=== PATIENT | male | born 1960 | race Caucasian/White ===

== ENCOUNTER 2019-05-01 20:01 | Inpatient (IN) | payer OTHER ==
[~2019-05-01] VITALS: Ht 193 cm; Wt 130.6 kg
--- NOTE | ~2019-05-01 | D ---
[facility] [place] [address] DISCHARGE SUMMARY Name: HAZEL JARRETT Room #: 453-P [facility] IN M.R.#: [id number] Admission: 05/01/19 ������������������ Attend Phys: Hayden Gonzalez Discharge: 05/03/19 ������������������ Date of : 58 Report #: [id number] THIS REPORT FOR: //name// CC: Emile Bliss DATE OF SERVICE: 05/03/2019 FINAL DIAGNOSES: 1. L5 vertebral fracture. 2. Lumbar spinal stenosis. 3. Diabetes type 2. 4. Multiple system atrophy. 5. Intractable back pain. HOSPITAL COURSE: The patient was admitted through the ER with intractable back pain. CT revealed L5 oblique fracture through the vertebral body and previous stabilization surgical hardware from L3 and L4 to S1. I reviewed his case extensively with the patient, his and their two children on the day of admission and then following day. This has been treated and worked up extensively through [facility] and what their description is at this point, there is nothing further that could be done from a surgical standpoint. I reviewed the CT with the radiologist and at this point, there are no overt signs of infection. His said he has already had a postoperative MRI and there was no discussion or reports of infection. At this point, he is adamant to go home. He had previously been on hospice care for his multiple system atrophy that was diagnosed at [facility] in 01/2018. At this point, they are comfortable with continuing hospice care for home treatment, but also following up as an outpatient to consider Neurosurgery third opinion on his back pain. He was comfortable with fentanyl patch 50 mcg, which he had previously used at home. He had also used at home Percocet, oxycodone and a brief treatment with oral Dilaudid here at 2 mg seemed to give better pain relief than the oxycodone. At this point, since he has tried several narcotics in the past, we will continue with the fentanyl patch 50 mcg and Dilaudid 2 mg q. 4 hours p.r.n. breakthrough pain. On the day of discharge, he was awake and alert, sitting up in the bedside chair. His mental status was clear. He was able to give me full history as he had previous day. I had received no phone calls on him overnight regarding uncontrolled pain. PHYSICAL EXAMINATION: VITAL SIGNS: Stable. LUNGS: Clear. HEART: Regular. ABDOMEN: Soft. EXTREMITIES: Showed no edema. [facility] [address] [place] [address] DISCHARGE SUMMARY Name: HAZEL JARRETT Room #: 453-P [facility] IN M.R.#: [id number] Admission: 05/01/19 ������������������ Attend Phys: Hayden Gonzalez Discharge: 05/03/19 ������������������ Date of : 58 Report #: [id number] DISPOSITION: To be discharged to home with diabetic diet, activity as tolerated. Follow up with Dr. Bliss in 10 days. We will have to send to hospice for multiple system atrophy. We will continue Wellbutrin, Tambocor, metformin, NovoLog and Levemir at home. He is to discontinue the clonazepam, carbamazepine, Zanaflex and oxycodone. He will take Dilaudid 2 mg q. 4 hours for severe pain, 7-10 and fentanyl patch 50 mcg every 3 days. ��������������������������������������������� ���������������������������������������� By: ��������������������������������������������� 1159 20 Nestor Cramer MD /nt
[2019-05-01 20:13] VITALS: BP 161/92
[2019-05-01 21:12] LABS: ABSOLUTE NEUTROPHILS 4.3 thou/uL (1.4-8.2); BASOPHILS 1.5 % (0.0-2.0); EOSINOPHILS 7.6 % (0.0-3.0); HEMATOCRIT 32.6 % (42.0-52.0); HEMOGLOBIN 10.8 gm/dL (14.0-18.0); LYMPHOCYTES 13.5 % (24.0-44.0); MCH 29.3 pg (26.0-34.0); MCV 88.9 fL (80.0-100.0); MONOCYTES 8.6 % (1.0-8.0); PLATELET COUNT 244 thou/uL (150-400); POLYS 68.8 % (36.0-66.0); RBC 3.66 mil/uL (4.50-6.00); RDW 16.2 % (10.5-14.5); WBC 6.2 thou/uL (4.0-11.0)
[2019-05-01 21:20] LABS: CALCIUM 8.8 mg/dL (8.5-10.1); CREATININE 0.9 mg/dL (0.7-1.3); POTASSIUM 4.5 mmol/L (3.5-5.1)
[2019-05-01 21:49] LABS: DIRECT BILIRUBIN < 0.1 mg/dL (<0.1-0.3); SGOT 13 U/L (15-37); SGPT 24 U/L (30-65); TOTAL BILIRUBIN 0.2 mg/dL (<0.1-1.0); TOTAL PROTEIN 6.2 g/dL (6.4-8.2)
[2019-05-01] MEDS ORDERED: LEVEMIR FL100 UNIT/2 SUBQ (22:33)
[2019-05-01] MEDS ORDERED: TAMBOCOR 100 M100 M1 PO (22:34)
[2019-05-01] MEDS ORDERED: GLUCOPHAGE XR750 MG PO (22:34)
[2019-05-01] MEDS ORDERED: NOVOLOG100 UNIT/1 SUBQ (22:34)
[2019-05-01] MEDS ORDERED: CLONAZEPAM 1 MG1 M1 PO (22:35)
[2019-05-01] MEDS ORDERED: CARBAMAZEPINE400 MG PO (22:35)
[2019-05-01] MEDS ORDERED: EFFEXOR 5050 MG/1 T1 PO (22:36)
[2019-05-01] MEDS ORDERED: ZANAFLEX4 MG PO (22:36)
[2019-05-01] MEDS ORDERED: ZYRTEC10 M5 PO (22:37)
[2019-05-01] MEDS ORDERED: TUMS PO (22:37)
[2019-05-01] MEDS ORDERED: CENTRUM SILVER1 EAC2 PO (22:37)
[2019-05-01 23:23] VITALS: BP 125/85
[2019-05-02 00:18] VITALS: BP 123/67
[2019-05-02 00:55] VITALS: BP 146/84
[2019-05-02 04:20] VITALS: BP 153/87
[2019-05-02 07:15] VITALS: BP 111/55
[2019-05-02 14:43] VITALS: BP 128/73
[2019-05-02 19:34] VITALS: BP 152/73
[2019-05-03 04:28] VITALS: BP 165/89
[2019-05-03 07:10] VITALS: BP 152/94
--- NOTE | 2019-05-03 10:58 | H ---
[facility] [place] [address] HISTORY AND PHYSICAL Name: HAZEL JARRETT Room #: 453-P ADM IN M.R.#: [id number] Admission: 05/01/19 ������������������ Attend Phys: Hayden Gonzalez Discharge: ������������������ Date of : 58 Report #: [id number] THIS REPORT FOR: //name// CC: Emile Bliss DATE OF SERVICE: 05/02/2019 ATTENDING PHYSICIAN: Dr. Bliss. CHIEF COMPLAINT: Back pain. HISTORY OF PRESENT ILLNESS: The patient is a 58-year-old gentleman who was admitted to the Emergency Room with intractable back pain. His history began in February of this year when he had a fall at home and complained of back pain. [facility] with degenerative changes in the lumbar spine and an L5 vertebral fracture. He was tried with a brace and supportive measures at home. However, his pain persisted and he had several ER evaluations at [facility]. Finally, he was evaluated and admitted at [facility] in March. He underwent a lumbar surgery, I believe, with a stabilization procedure at L3 and L4. He has since been discharged home after a rehab stay. However, his pain has persisted and recently intensified. He was just admitted to hospice care related to a diagnosis of multiple system atrophy from the [facility] in 01/2018. However, they have been unable to manage his pain and have sent him to the Emergency Room. In speaking with the patient and his , it appears he has had several MRIs following surgery. They report at this time, the surgeon at says nothing more could be done for the fracture and it is just a pain management situation at this point, I explained to them that the [facility] currently does not have a neurosurgeon on staff, but I would place a call to his surgeon at . PAST MEDICAL HISTORY: Multiple system atrophy, as mentioned, diagnosed by [facility] in 01/2018. Prior to this, he had some Parkinson symptoms, hypertension, chronic congestive heart failure, chronic kidney disease, AFib and Meniere's disease. PAST SURGICAL HISTORY: As above. FAMILY HISTORY: Noncontributory. SOCIAL HISTORY: He is and lives with his at home. ALLERGIES: PREDNISONE. MEDICATIONS: Lantus, NovoLog, metformin and flecainide. He is also using [facility] [address] [place] [address] HISTORY AND PHYSICAL Name: HAZEL JARRETT Room #: 453-P ADM IN M.R.#: [id number] Admission: 05/01/19 ������������������ Attend Phys: Hayden Gonzalez Discharge: ������������������ Date of : 58 Report #: [id number] oxycodone and fentanyl patch at home. REVIEW OF SYSTEMS: He denies headache, chest pain, shortness of breath, abdominal pain, nausea, vomiting, diarrhea, constipation or dysuria. PHYSICAL EXAMINATION: VITAL SIGNS: Temperature 36.7, pulse 56, respirations 20, blood pressure 111/55 and O2 sat 99% on room air. GENERAL: He is awake and alert, lying in bed. HEAD AND NECK: Unremarkable. LUNGS: Clear. HEART: Irregular. ABDOMEN: Soft. Normoactive bowel sounds. EXTREMITIES: Venous stasis dermatitis changes, but no edema. NEUROLOGIC: Cranial nerves intact. Speech is fluent. Global strength is about 4/5 throughout. LABORATORY DATA: Unremarkable. Albumin at 3. IMAGING: CT of the lumbar spine reveals oblique fracture through L5 vertebral body with anterior fragment displacement, post-surgical changes with fusion rods at L3 and L4 and S1 and osteophyte formation, L4-L5 with [id number] right foraminal stenosis adjacent to the right L4 nerve root. ASSESSMENT: 1. Closed L5 vertebral fracture. 2. Lumbar spinal stenosis at L4 and L5. 3. Recent spinal fusion, L3 and L4 and S1. 4. Intractable back pain due to closed L5 vertebral fracture. 5. Diabetes type 2. 6. Atrial fibrillation, not on anticoagulation. 7. Chronic congestive heart failure. 8. Multiple system atrophy. PLAN: I explained to the patient and his family at this time our focus will be pain control. He has had evaluation for this fracture and what his describes that there were no other surgical interventions or procedures indicated. He has DNR status, which he has requested to continue here due to his underlying neurologic condition. I have placed a call to Dr. Park in the Neurosurgery Department at [facility]. ��������������������������������������������� <ELECTRONICALLY SIGNED> ���������������������������������������� By: Nestor Cramer MD ��������������������������������������������� 05/03/19 1058 1046 1209 Nestor Cramer MD /nt
[2019-05-03] MEDS ORDERED: FENTANYL1 EAC1 TRANSDERM (11:34)
[2019-05-03] MEDS ORDERED: DILAUDID 2 MG TA2 MG PO (11:35)
[2019-05-03 11:58] VITALS: BP 152/94
[2019-05-03 12:02] VITALS: BP 152/94
== END 2019-05-03 13:35 | disposition hospice, home (50) | DRG 560 ==
LOC: ER 20:01 → 4W 23:01 → EROBS 23:01 → 4W 05-02 00:40 → ENTRNSPT 05-03 13:14 → EDTRNSPT 05-03 13:25 → 4W 05-03 13:35 → EDTRNSPTSTS 05-03 13:43
PROVIDERS: Emergency Medicine; Nurse Practitioner Family; ADMIT Internal Medicine
DX: M84.48XG Pathological fracture, other site, subsequent encounter for fracture with delayed healing (principal); I13.0 Hypertensive heart and chronic kidney disease with heart failure and stage 1 through stage 4 chronic kidney disease, or unspecified chronic kidney disease; I48.91 Unspecified atrial fibrillation; N18.9 Chronic kidney disease, unspecified; M48.061 Spinal stenosis, lumbar region without neurogenic claudication; I50.9 Heart failure, unspecified; Z66 Do not resuscitate; Z88.8 Allergy status to other drugs, medicaments and biological substances; Z79.899 Other long term (current) drug therapy
CPT/HCPCS: 10047

== ENCOUNTER 2020-03-26 08:13 | Day surgery (SDC) | payer OTHER ==
[~2020-03-26] VITALS: Ht 193 cm; Wt 127.0 kg
[~2020-03-26 08:13] MED LIST: CARBAMAZEPINE400 MG PO; CENTRUM SILVER1 EAC2 PO; CLONAZEPAM 1 MG1 M1 PO; DILAUDID 2 MG TA2 MG PO; EFFEXOR 5050 MG/1 T1 PO; FENTANYL1 EAC1 TRANSDERM; GLUCOPHAGE XR750 MG PO; LEVEMIR FL100 UNIT/2 SUBQ; LOXAPINE10 MG PO; LOXAPINE25 MG PO; NOVOLOG100 UNIT/1 SUBQ; TAMBOCOR 100 M100 M1 PO; TUMS PO; ZALEPLON 10 MG10 M1 PO; ZANAFLEX4 MG PO; ZYRTEC10 M5 PO
[2020-03-26 09:25] VITALS: BP 143/95
[2020-03-26 09:30] LABS: HEMATOCRIT 35.2 % (42.0-52.0); HEMOGLOBIN 11.7 gm/dL (14.0-18.0)
--- NOTE | 2020-03-26 12:55 | H ---
[facility] [place] [address] HISTORY AND PHYSICAL Name: HAZEL JARRETT Room #: 150-2 [facility] M.R.#: [id number] Admission: 03/26/20 Attend Phys: Christopher Garland MD Discharge: Date of : 58 Report #: [id number] THIS REPORT FOR: cc: Emile Bliss MD,Emile Garland,Christopher Green MD ~ CC: Jeffy Garland PREOPERATIVE DIAGNOSES: Cholecystitis and cholelithiasis, abdominal pain. HISTORY OF PRESENT ILLNESS: The patient is a 59-year-old who is having pretty significant abdominal pain. This is located in the epigastrium and it does spread some to the right and left side. The pain is jabbing sharp in nature, associated with nausea and bloating. No history of jaundice. No fevers or chills. The pain comes on after eating. His stools have been loose. Currently, he is having trouble with eating and has had increased difficulty with food without bringing on the pain. This has been going on for about 6 weeks. The pain usually comes on as he is eating. The episodes are getting worse and lasting longer. He is on a bland diet. No family history of gallbladder disease. PAST MEDICAL HISTORY: The patient has diabetes; atrial fib, he has been off of anticoagulant for about a year; stroke; orthostatic hypertension; kidney disease; congestive heart failure; multisystem atrophy; neuropathy; anxiety; depression; degenerative joint disease; Meniere; L5 rupture; obesity, status post gastric bypass. PAST SURGICAL HISTORY: Knee arthroscopy, bariatric gastric bypass surgery in 2016, ankle surgery. ALLERGIES: PREDNISONE. MEDICATIONS: Metformin, Dilaudid p.o., fentanyl patch, carvedilol, Lasix, loxapine, vitamin C, zinc, flecainide, Zanaflex. FAMILY HISTORY: There is family history of atrial fibrillation. SOCIAL HISTORY: The patient is disabled, does not smoke or drink. REVIEW OF SYSTEMS: The patient has back issues at L5. PHYSICAL EXAMINATION: GENERAL: The patient is a large male. He is not in acute distress. HEENT: Pupils react to light. No scleral icterus. NECK: Soft and supple, no JVD. [address] [address] HISTORY AND PHYSICAL Name: HAZEL JARRETT Room #: 150-2 [facility] M.R.#: [id number] Admission: 03/26/20 Attend Phys: Christopher Garland MD Discharge: Date of : 58 Report #: [id number] LUNGS: Clear to auscultation. HEART: Irregular rate and rhythm. No murmur or gallop. ABDOMEN: Soft with tenderness in right upper quadrant. No ascites. No mass, guarding or rigidity. The patient currently weighs about 270 pounds. EXTREMITIES: No cyanosis, clubbing, edema. IMPRESSION AND PLAN: The patient is a 59-year-old who has had pain in the abdomen for about 6 weeks. He does have gallstone seen on ultrasound. The stones are mobile. No wall thickening or pericholecystic fluid. Bile duct is 6 mm. Because of the severity of his pain, he is recommended to undergo laparoscopic cholecystectomy. Procedure was discussed. Risk of bleeding and infection were discussed. Risk of bile duct injury was discussed. The patient understands the procedure and the risks involved and wishes to proceed. He will receive preoperative IV antibiotics. <ELECTRONICALLY SIGNED> By: Christopher Garland MD 03/26/20 1255 [id number] [id number] Christopher Garland MD /nt
[2020-03-26 15:19] VITALS: BP 168/108
--- NOTE | 2020-03-26 19:26 | NUR ---
PT CARE ASSUMED AT 1530 FROM SURGERY. A&Ox4. PT HAS USED THE BATHROOM. NO PAIN MEDICATION NEEDED FOR SURGERY PAIN BUT PT DOES COMPLAIN OF A CHIPPED TOOTH PAIN. UP WITH STAND BY ASSIST. 4 LAP SITE WITH A JPRAT IN RLQ. WITH 19 ML DRAINED. PT HAS CHRONIC BACKPAIN WITH A FENTANYL PATCH IN PLACE FROM HOME THAT IS DUE TO BE REPLACED TOMORROW. OBSERVATION PATIENT. CALL LIGHT IN REACH. SCD IN PLACE. IV PATENT WITH NO REDNESS OR EDEMA. FLUIDS INFUSING. WILL CONTINUE TO MONITOR.
[2020-03-26 20:00] VITALS: BP 129/86
--- NOTE | 2020-03-27 01:32 | NUR ---
ASSESSED PT AT START OF SHIFT PT A&OX4 WITH C/O PAIN IN BACK, TOOTH AND MILD PAIN IN ABD MEDS GIVEN SEE EMAR. IV INTACT AND FLUIDS INFUISING. 4 LAP SITES INTACT AND DEMETRI DRAIN IN PLACE. CALL LIGHT IN REACH AND WILL CONT WITH POC TILL EOS.
[2020-03-27 07:49] VITALS: BP 150/97
--- NOTE | 2020-03-27 13:41 | O ---
[facility] [place] [address] OPERATIVE REPORT Name: HAZEL JARRETT Room #: 441-P [facility] M.R.#: [id number] Admission: 03/26/20 Attend Phys: Christopher Garland MD Discharge: Date of : 58 Report #: [id number] THIS REPORT FOR: cc: Emile Bliss MD,Emile Garland,Christopher Green MD ~ CC: Jeffy Garland DATE OF SERVICE: 03/26/2020 PREOPERATIVE DIAGNOSES: Cholecystitis with cholelithiasis. POSTOPERATIVE DIAGNOSES: Cholecystitis with cholelithiasis. PROCEDURES PERFORMED: Laparoscopic cholecystectomy with cholangiogram. SURGEON: Christopher Garland MD ANESTHESIA: General anesthesia. FINDINGS: Gallbladder was covered by dense adhesions. Common bile duct is normal. Large gallstones identified in the gallbladder. COMPLICATIONS: None. A#19 Jordan drain placed in the Jones's pouch. DESCRIPTION OF PROCEDURE: With the patient under general anesthesia, abdomen was prepped and draped in sterile fashion. IV antibiotic was administered. Timeout was performed. A 0.25% Marcaine was used to anesthetize the skin above the umbilicus, about an inch above the umbilicus. Transverse incision about a little over 2 cm was made. Fascia was identified. Fascia was grasped with hemostat. Fascia was then opened under visualization, 0 Vicryl suture placed on the fascial edges for retraction. Veress needle was then placed through the peritoneum. Abdominal cavity was insufflated with CO2. After creating pneumoperitoneum, an 11 mm trocar was placed into the pneumoperitoneum without harm to the underlying tissue. Lower abdomen is free from adhesions. In the left upper quadrant from the falciform and going to the left, there is fatty adhesion to the abdominal wall. Two 5 mm trocars were placed in the right upper quadrant, another 5 mm trocar was placed in right epigastrium. Gallbladder was identified. Fundus of the gallbladder was isolated. There was adhesion all the way up to the fundus. Adhesions were taken down. The gallbladder was fairly elongated. Proximal part of the gallbladder was then identified. The lymph node in the triangle of Calot was removed. This allowed the cystic artery to be [facility] [address] [place] [address] OPERATIVE REPORT Name: HAZEL JARRETT Room #: 441-P [facility] M.R.#: [id number] Admission: 03/26/20 Attend Phys: Christopher Garland MD Discharge: Date of : 58 Report #: [id number] visualized. The cystic duct was also identified. The artery was isolated, clipped x 2 proximally and 1 distally and then divided. The cystic duct to the junction of the gallbladder was folded on itself. There was adhesive band in this area. These were taken down. The cystic duct was then isolated. Clip was placed in junction of cystic duct to the gallbladder. Opening was made in the cystic duct just below and proximal to the clip. The cholangiogram catheter inserted. Right at the area of the catheter insertion, the cystic duct was quite thin, probably from having to dissect it out. The rest of the cystic duct is not disturbed. There was a what looks like a pretty good size vein over the proximal cystic duct. Cholangiogram catheter was performed. The dye flowed through the rest of the cystic duct into the common duct. The common duct is dilated in size, no filling defects identified. Dye flowed into the duodenum. The distal common duct was difficult to visualize, but there was no evidence of any stone. The cholangiogram catheter was then removed. The proximal cystic duct was then clipped x 2 and then divided. Gallbladder was free from the liver bed. Due to the thinning of the cystic duct at the catheter cannulation site, I decided to go ahead and place a #19 Jordan drain just in case bile comes out through that area. I do not think it will though. Gallbladder was then removed through the infraumbilical port. The fascia had to be enlarged. The gallbladder was opened up. The bile suctioned out. Stone was identified, grasped and removed. A large oval stone was removed. The gallbladder had cholesterolosis. Liver bed was checked, hemostasis obtained. A #19 Jordan drain was brought in through the epigastric 5 mm trocar. The drain was cut to size and then placed in Morison's pouch. The drain was sewn with 2-0 silk suture at the exit site. The trocars were removed. CO2 was evacuated. The fascia defect in the umbilicus was closed with [id number] 0 Vicryl x 3. Skin was irrigated. Skin was closed with 5-0 PDS. Steri-Strip, Band-Aids applied. A 4 x 4 small gauze was placed around the drain site and Op-Site was used for dressing. Band-Aid was applied to the other trocar site. The patient was awakened and taken to recovery room. <ELECTRONICALLY SIGNED> By: Christopher Garland MD 03/27/20 1341 19 240 Christopher Garland MD /nt
[2020-03-27] MEDS ORDERED: NORCO 5-325 TA1 EAC1 PO (14:00)
[2020-03-27 14:09] VITALS: BP 150/97
--- NOTE | 2020-03-27 14:22 | NUR ---
PT CALM...DISCHARGED HOME WITH SPOUSE...INSTRUCTIONS AND RX GIVEN
--- NOTE | 2020-03-27 17:07 | PATH ---
[facility] [address] [place] [address] PATHOLOGY RPT PROCEDURE Name: PARVIZ JARRETT Room #: DEP [facility] M.R.#: [id number] Admission: 03/26/20 Date of : 58 Discharge: 03/27/20 Report #: [id number] Path Case #: [id number] [facility] Accession Number: [id number] . 01 Material submitted: . gallbladder - GALLBLADDER . 01 Clinical history: . Cholecystitis with cholelithiasis . 02 Diagnosis: Gallbladder, cholecystectomy: - Mild chronic cholecystitis. - Cholelithiasis. - Cholesterolosis. (IUV:pit 03/27/2020) QTP 03/27/2020 1231 Local . 02 Electronically signed: . Camryn Crawley MD, Pathologist NPI- [id number] . 01 Gross description: . The specimen is received in formalin, labeled "Ebeling, Parviz, gallbladder" and consists of a previously opened pink-purple gallbladder measuring 10.2 x 3.2 x 0.6 cm. The margin is inked. Additionally received is a green granular oval calculus measuring 4.8 x 2.4 x 2.4 cm. The mucosa is pink with yellow streaking and the wall thickness is 0.1 cm. No gross lesions are identified. Heel Edge Inker Machine sections are submitted in A1. ([facility]; 03/26/2020) JFQ/SYDNI 03/27/2020 1230 Local . 02 Pathologist provided ICD-10: K80.10, K82.4 . 02 CPT . 388816 Specimen Comment: A courtesy copy of this report has been sent to [phone], [phone] Specimen Comment: [id number] Specimen Comment: Report sent to / DR WORKMAN Performed at: [address] [id number] MD Jonas Johnson MD Phone: [phone] Performed at: [address] [address] PATHOLOGY RPT PROCEDURE Name: EBELING,PARVIZ Room #: DEP [facility] M.R.#: [id number] Admission: 03/26/20 Date of : 58 Discharge: 03/27/20 Report #: [id number] Path Case #: [id number] [address] [id number] MD Camryn Crawley MD Phone: [phone]
== END 2020-03-27 14:37 | disposition home or self-care (01) ==
LOC: OR 08:13 → TBA 08:13 → OR 09:04 → EDSTATUS 10:42 → OR 10:44 → 4S 13:57 → OR 03-27 14:37
PROVIDERS: Anesthesiology
DX: K80.10 Calculus of gallbladder with chronic cholecystitis without obstruction (principal); R10.9 Unspecified abdominal pain; I11.0 Hypertensive heart disease with heart failure; I50.9 Heart failure, unspecified; E11.9 Type 2 diabetes mellitus without complications; I48.91 Unspecified atrial fibrillation; F41.9 Anxiety disorder, unspecified; F32.9 Major depressive disorder, single episode, unspecified; E66.09 Other obesity due to excess calories; M19.90 Unspecified osteoarthritis, unspecified site; Z98.890 Other specified postprocedural states; Z79.899 Other long term (current) drug therapy; Z98.84 Bariatric surgery status; Z79.01 Long term (current) use of anticoagulants; Z88.8 Allergy status to other drugs, medicaments and biological substances; Z68.34 Body mass index [BMI] 34.0-34.9, adult
CPT/HCPCS: 10102; 50010; 50101; 50249; 50411; 50555; 50558; 51489; 52265; 53307; 53310; 55245; 55317; 56462; 56525; 56526; 56719; 62110; 62900; 70005